=== PATIENT | female | born 1990 | race Caucasian/White ===

== ENCOUNTER 2016-06-27 08:13 | Inpatient (IN) | payer BC ==
[~2016-06-27] VITALS: Ht 152.4 cm; Wt 70.3 kg
[~2016-06-27 08:13] MED LIST: FERR325T5 PO; MTR600X PO; OXYC-643 PO; PRENTAB14 PO
[2016-06-27 09:16] VITALS: Ht 152.4 cm; Wt 70.3 kg
[2016-06-27] MEDS ORDERED: LACTATED RINGER'S 1000ML 1,000 ML IV PRN (11:12)
[2016-06-27] MEDS ORDERED: LACTATED RINGER'S 1000ML 500 ML IV PRN ×2 (11:12→15:40)
[2016-06-27] MEDS ORDERED: OXYTOCIN 30 UNITS/500ML NSS IV PRN ×2 (11:15→21:00)
[2016-06-27 11:33] LABS: HEMATOCRIT 36.6 % (37-47); MEAN CELL VOLUME 79.9 fL (80-100); MEAN CORPUSCULAR HEMOGLOBIN 28.2 pg (25-34); MEAN CORPUSCULAR HGB CONC 35.2 g/dl (32-36); MEAN PLATELET VOLUME 11.8 fL (7.4-10.4); PLATELET COUNT 178 K/uL (130-400); RED BLOOD COUNT 4.58 M/uL (4.2-5.4); WHITE BLOOD COUNT 8.52 K/uL (4.8-10.8)
--- NOTE | 2016-06-27 12:03 | HISTORY & PHYSICAL EXAMINATION ---
DATE OF ADMISSION: 06/27/2016 CHIEF COMPLAINT: Contractions. HISTORY OF PRESENT ILLNESS: The patient is a 25-year-old 2, para 1 at 39 weeks and 3 days gestation who presents to labor and delivery with contractions that began around 4:45 a.m. on the morning of admission. Her contractions have progressively increased in intensity and frequency. On arrival, she was deja every 2-3 minutes. She was found to be 3 cm, 60% effaced, and -3 station. heart tones are category 1. She was allowed to ambulate for 3 hours. Upon recheck she was found to be 4 cm, 70% effaced and -2 station, therefore the patient was admitted to labor and delivery for active labor. She does have a history of a previous section in 2012 secondary to intolerance to labor at 39 weeks and 3 days gestation. The patient opted to proceed with a trial of labor after section. The risks, benefits and alternatives were discussed multiple times throughout her care and informed consent was obtained. She would like to proceed with a trial of labor. PAST MEDICAL HISTORY: Significant for depression. She was on medications with her prior at 6 weeks . Currently, has not needed any medications. PAST SURGICAL HISTORY: Significant for primary section in November of 2012 secondary to bradycardia, baby weighed 6 pounds 8 ounces. SOCIAL HISTORY: The patient denies tobacco, alcohol or drug use. MEDICATIONS: vitamins and Zithromax for bronchitis. ALLERGIES: No known drug allergies. LABS: Blood type is O negative, group B strep negative, rubella nonimmune, hepatitis B surface antigen negative, RPR nonreactive and HIV negative. PHYSICAL EXAMINATION: VITAL SIGNS: Blood pressure 119/67, heart rate of 71, respiration rate of 18, temperature 97.5. GENERAL: The patient is awake, alert and oriented x3. She is in mild to moderate distress from her contractions. HEART: Regular rate and rhythm. LUNGS: Clear to auscultation bilaterally. ABDOMEN: Gravid uterus, appropriate for gestational age. Estimated weight is 7 pounds. EXTREMITIES: No clubbing, cyanosis or calf tenderness. VAGINAL: heart tone is category 1. Contractions are every 2-3 minutes spontaneously. ASSESSMENT AND PLAN: A 25-year-old 2, para 1 at 39 weeks and 3 days gestation. Will be admitted to labor and delivery for active labor. She would like to proceed with a trial of labor after after previous section. Risks, benefits and alternatives were discussed with the patient. Will augment labor as needed. She may have her epidural upon request and anticipate vaginal delivery.
[2016-06-27] MEDS: LACTATED RINGER'S 1000ML 1,000 ML IV SCH ×3 (12:59→19:31)
[2016-06-27] MEDS ORDERED: BUPIVACAINE 0.25% 30 ML VIAL ONE (14:43)
[2016-06-27] MEDS ORDERED: EpHEDrine SULFATE INJ 50 MG/ML AMP ONE (14:44)
[2016-06-27] MEDS ORDERED: FENTANYL CITRATE INJ 50 MCG/1 ML 2 ML VIAL ONE (14:44)
[2016-06-27] MEDS ORDERED: FENTANYL 2MCG/ML ROPIV 1.25MG/ML 100ML BAG EPI ONE (14:45)
[2016-06-27] MEDS ORDERED: NALOXONE HCL INJ 1 MG in SODIUM CHLORIDE 0.9% 1000ML 1,000 ML IV PRN (15:40)
[2016-06-27] MEDS ORDERED: FENTANYL 2MCG/ML ROPIV 1.25MG/ML 100ML BAG EPI PRN (15:45)
[2016-06-27] MEDS ORDERED: EpHEDrine SULFATE INJ 50 MG/ML AMP IV PRN (15:45)
[2016-06-27] MEDS ORDERED: NALBUPHINE HCL INJ 10 MG/ML AMP IV PRN (15:45)
[2016-06-27] MEDS ORDERED: DiphenhydrAMINE HCL 50 MG/ML VIAL IV PRN (15:45)
[2016-06-27] MEDS ORDERED: ONDANSETRON INJ 2 MG/ML 2 ML VIAL IV PRN (15:45)
[2016-06-27] MEDS ORDERED: NALOXONE HCL INJ 0.4 MG/1 ML VIAL/CARP IV PRN (15:45)
[2016-06-27] MEDS ORDERED: CALCIUM CARBONATE 500 MG CHEWABLE PO PRN ×2 (16:00→20:00)
[2016-06-27] MEDS ORDERED: OXYCODONE/ACETAMINOPHEN 5-325 TAB PO PRN (21:00)
[2016-06-27] MEDS ORDERED: LANOLIN OINT EXT PRN ×2 (21:00)
[2016-06-27] MEDS ORDERED: ACETAMINOPHEN/CODEINE 300/30MG TAB PO PRN ×2 (21:00)
[2016-06-27] MEDS ORDERED: MEASLES, MUMPS & RUBELLA VIRUS VIAL SQ. ONE (21:00)
[2016-06-27] MEDS ORDERED: HYDROCORTISONE ACETATE 25 MG SUPP PR PRN (21:00)
[2016-06-27] MEDS ORDERED: ACETAMINOPHEN 325 MG TAB PO PRN (21:00)
[2016-06-27] MEDS ORDERED: DIPHTHERIA/TETANUS/PERTUSSIS 0.5 ML SYR/VIAL IM. ONE (21:00)
[2016-06-27] MEDS ORDERED: BENZOCAINE 20% AER SPR 82.5 GM CAN EXT PRN (21:00)
[2016-06-27] MEDS ORDERED: SUPERCREAM 0.870 % 15GM JAR EXT PRN (21:00)
[2016-06-27] MEDS ORDERED: NURSING VERBAL MED ORDER ONE (21:30)
--- NOTE | 2016-06-27 21:40 | DELIVERY SUMMARY ---
DATE OF OPERATION: 06/27/2016 TIME OF DELIVERY: 20:27 DELIVERY OF PLACENTA: 20:31 DELIVERY NOTE: The patient is a 25-year-old 2 para 1 at 39 weeks and 3 days gestation with a history of a previous section, requesting a trial of labor after section, was admitted on the morning of 06/27/2016 in active labor. Upon admission, she was found to be 4 cm dilated, 60% effaced and -3 station. Her labor was augmented with oxytocin. She received an epidural for anesthesia. Artificial rupture of membranes was performed at 16:43 with clear amniotic fluid noted. She reached complete dilation at 19:52 and pushed to delivery at 20:27. She delivered a viable female infant in the right occiput anterior position to an intact perineum. The baby was then placed on patient's abdomen. Cord was clamped x2 and cut. Apgars were 8 at one minute and 9 at five minutes. Weight is pending. Please see nursing notes for further baby assessment. Cord blood was then obtained and an intact placenta with a 3-vessel cord was delivered at 20:31. Oxytocin infusion was then begun. The lower uterine segment and vagina were cleared of any blood clots and debris. Exploration of perineum noted a left-sided periurethral laceration which was repaired with 3-0 Vicryl suture in a continuous running fashion. Excellent hemostasis was noted. No other lacerations were seen. ESTIMATED BLOOD LOSS: 300 mL. One sharp was removed from the operative field. All sponge and instrument counts were found to be correct x2. Both patient and baby tolerated the delivery well and were in Recovery with stable vital signs. I attest to the content of the Intraoperative Record and any orders documented therein. Any exceptio ns are noted below.
[2016-06-27] MEDS: AZITHROMYCIN 250 MG PO SCH (22:00)
[2016-06-28] VITALS (7 sets, daily range): BP systolic 106–128; BP diastolic 61–84; PULSE 52–77; TEMP 36.4–36.6; O2SAT 96–99
[2016-06-28] MEDS: IBUPROFEN 600 MG TAB PO PRN ×4 (04:09→19:22)
[2016-06-28 06:10] LABS: HEMATOCRIT 33.1 % (37-47)
[2016-06-28] MEDS: PRENATAL VITAMIN TAB PO SCH (07:50)
[2016-06-28] MEDS: FERROUS SULFATE 325 MG TAB PO SCH (07:50)
[2016-06-28] MEDS: DOCUSATE SODIUM 100 MG CAP PO SCH ×2 (07:50→19:21)
--- NOTE | 2016-06-28 10:05 | Anesthesia Procedure Note ---
Anesthesia Epidural Removal Nt Date & Time Jun 28, 2016 at 10:03 Vital Signs Pain Intensity: 2 Vital Signs Past 12 Hours Date Time Temp Pulse Resp B/P Pulse Ox O2 Delivery O2 Flow Rate FiO2 06/28/16 08:00 36.4 52 18 125/76 06/28/16 04:10 36.6 60 20 122/74 98 Room Air 06/28/16 00:10 97 Room Air 06/28/16 00:10 36.4 77 20 106/61 97 Room Air Notes Mental Status: alert / awake / arousable, participated in evaluation Nausea / Vomiting: adequately controlled Pain: adequately controlled Airway Patency, RR, SpO2: stable & adequate BP & HR: stable & adequate Hydration State: stable & adequate Neuraxial Anesthesia: was administered Anesthetic Complications: no major complications apparent, pt satisfied with anesthetic care Epidural: removed without complications, with tip intact
[2016-06-28] MEDS: AZITHROMYCIN 250 MG PO SCH (19:22)
[2016-06-28] MEDS ORDERED: BISACODYL 5 MG TABEC PO SCH (20:00)
[2016-06-29 06:34] LABS: HEMATOCRIT 34.5 % (37-47); MEAN CELL VOLUME 82.9 fL (80-100); MEAN CORPUSCULAR HEMOGLOBIN 27.9 pg (25-34); MEAN CORPUSCULAR HGB CONC 33.6 g/dl (32-36); MEAN PLATELET VOLUME 12.8 fL (7.4-10.4); PLATELET COUNT 164 K/uL (130-400); RED BLOOD COUNT 4.16 M/uL (4.2-5.4); WHITE BLOOD COUNT 14.53 K/uL (4.8-10.8)
[2016-06-29] MEDS ORDERED: BISACODYL 10 MG SUPP PR PRN (07:00)
[2016-06-29 08:00] VITALS: BP 118/79; PULSE 64; TEMP 36.3; O2SAT 99
[2016-06-29] MEDS: IBUPROFEN 600 MG TAB PO PRN (08:08)
[2016-06-29] MEDS: PRENATAL VITAMIN TAB PO SCH (08:09)
[2016-06-29] MEDS: FERROUS SULFATE 325 MG TAB PO SCH (08:09)
[2016-06-29] MEDS: DOCUSATE SODIUM 100 MG CAP PO SCH (08:09)
--- NOTE | 2016-06-29 08:24 | OB/GYN Progress Note ---
MEDICAL MANAGEMENT TRAINER Progress Note Date of Service Jun 29, 2016. Subjective conversation w/ patient, physical exam Ambulation: ambulating normally Voiding: no voiding problems Passing Gas: Yes Diet Tolerance: Regular Diet Lochia: Moderate Feeding Type: Breast Feeding Review of Systems Constitutional: No chills, No fatigue, No fever, No problem reported, No sweats , No weakness, No weight loss Respiratory: No cough, No dyspnea at rest, No dyspnea on exertion, No hemoptysis, No problem reported, No shortness of breath, No sputum, No wheezing Cardiac: No PND, No chest pain, No claudication, No edema, No orthopnea, No palpitations, No problem reported Breast: No breast lump, No breast pain, No change in shape, No nipple discharge , No problem reported, No see HPI Abdomen: No GI bleeding, No constipation, No diarrhea, No nausea, No pain, No problem reported, No vomiting Female : No abnormal vaginal bleeding, No dysuria, No hematuria, No incontinence, No problem reported, No see HPI, No urinary frequency, No vaginal discharge Objective Vital Signs Date Time Temp Pulse Resp B/P Pulse Ox O2 Delivery O2 Flow Rate FiO2 06/28/16 23:20 97 Room Air 06/28/16 23:20 36.5 74 18 114/73 97 Room Air 06/28/16 20:20 Room Air 06/28/16 20:20 36.6 73 16 124/84 96 Room Air 06/28/16 15:45 36.5 68 18 106/75 99 Room Air 06/28/16 15:45 99 Room Air 06/28/16 12:30 36.4 73 18 128/84 98 Room Air Physical Exam General Appearance: WELL-APPEARING, WD/WN Respiratory/Chest: chest non-tender, lungs clear, normal breath sounds, no respiratory distress, no accessory muscle use Cardiovascular: regular rate, rhythm, no edema, no gallop, no JVD, no murmur Abdomen: normal bowel sounds, non tender, soft, no organomegaly, no pulsatile mass Fundus: Firm Incision Description: Clean, Dry & Intact Extremities: normal range of motion, non-tender, normal inspection, no pedal edema Laboratory Results Last 24 Hours Test 06/29/16 05:56 White Blood Count 14.53 K/uL Red Blood Count 4.16 M/uL Hemoglobin 11.6 g/dL Hematocrit 34.5 % Mean Corpuscular Volume 82.9 fL Mean Corpuscular Hemoglobin 27.9 pg Mean Corpuscular Hemoglobin Concent 33.6 g/dl RDW Standard Deviation 41.0 fL RDW Coefficient of Variation 13.5 % Platelet Count 164 K/uL Mean Platelet Volume 12.8 fL Assessment and Plan Day Number: 2 Continue Routine Care: VD day #2 d/c home with instructions
[2016-06-29] MEDS ORDERED: MTR600X PO (08:25)
--- NOTE | 2016-06-29 08:27 | Discharge Instructions ---
Discharge Instructions Date of Service Jun 29, 2016. Admission Reason for Admission: Active Labor At Term Discharge Discharge Diagnosis / Problem: Discharge Goals Goal(s): Routine recovery after delivery Activity Recommendations Activity Limitations: as noted below ACTIVITY RECOMMENDATIONS: * Gradual return to full activity over the next 2-3 weeks. * No lifting - nothing heavier than baby over the next 2-3 weeks. * Do not engage in vigorous exercise, sexual activity or sports until cleared by your physician. * Do not drive or operate any motorized equipment until cleared by your physician. * You may shower/bathe daily. BREAST CARE: If you are not breast feeding: * Wear a supportive bra 24 hours a day for one to two weeks. * Avoid stimulating your breasts and nipples as much as possible during the first few weeks after delivery. * When taking a shower, have the warm water hit your back, not breasts. * When your breasts feel full, apply ice packs. Usually three to four times a day helps ease the discomfort. * Take a mild pain medication (Tylenol/Motrin) when you are uncomfortable. If breast feeding: * Use breast milk to lubricate nipples. Lansinoh cream may be used for sore nipples. You do not need to remove cream prior to breast feeding. If using a different brand of cream, check the label for directions regarding removal of cream prior to nursing. * Wear a supportive bra. * If having problems with breasts or breast feeding, call a datapower consultant or your health care provider. EPISIOTOMY CARE: After delivery, if you have an episiotomy (stitches), the following steps will ease discomfort and aid healing. * For the first 24 hours after delivery, place ice packs next to your episiotomy to help reduce swelling. * After the first 24 hour-period, sitz baths, either portable or in the tub, are suggested. A shower with a shower arm sprayed over the episiotomy may be comforting. * Yvonne care should be done after each voiding and bowel movement. Squirt warm water from a plastic bottle over the perineum (region of the body between the anus and urinary opening) and pat dry. * Use Dermoplast to ease discomfort. Shake container. [place] directly over the episiotomy. * Place a Tucks on a clean sanitary pad next to your episiotomy. OVER THE COUNTER MEDICATION: * For discomfort or pain, you may use Acetaminophen (Tylenol), Ibuprofen (Advil ), or Naproxen (Aleve) following the package directions. * For constipation you may use Colace following the package directions. SPECIAL CARE INSTRUCTIONS: When you are discharged from the hospital, it is important for you to follow the instructions listed below: * During the first week at home, you should be able to care for yourself and your baby. In addition, the usual light household activities are encouraged. * Limit your activities to the way you feel. Do not try to clean the house or move furniture. Be sensible. * If you actively engage in sports and have done so up until the time of your delivery, you may resume these activities as soon as you feel able. This may take up to one month or even longer. Use good judgment. * Continue to take your vitamins for at least six weeks after the of your baby. * Your diet need not be limited unless you were on a special diet before your delivery. Breast-feeding mothers need around 2500 calories per day and at least 64-80 ounces of fluid per day (8 to 10 glasses). * You should eat foods from the four major food groups. Crash diets or fad diets are to be avoided. Eating lean meats, fresh fruits and vegetables, low-fat dairy products, high fiber foods and a regular exercise program, will help you get back to your pre- weight without putting your health at risk. * Constipation is sometimes a problem after delivery. Take a mild laxative as needed. If breast feeding, Milk of Magnesia is acceptable to use. You may use a suppository or Fleets enema if no episiotomy. * A daily shower or tub bath is suggested. Be sure to thoroughly and gently dry the perineum. * A bloody vaginal discharge will usually continue until around four weeks post . A small amount of bleeding may continue for as long as six weeks. Vaginal discharge changes from the bright red bleeding after delivery to pink then brownish and finally yellowish-pink before becoming white and disappearing. * Bleeding may increase with activity. Your first period may come in 4-8 weeks. If you are breast feeding, your period may be delayed even longer. * [place] (sex) can begin whenever both you and your partner feel comfortable and do not have any form of genital infection. It is recommended that you wait until after your return appointment and discuss with your physician. If you have questions, please talk to your health care practitioner. A condom should be used to prevent infection and . * Foreplay, gentle intercourse and lubrication is very important the first several times to prevent pain. A water-based lubricant such as K-Y jelly or Astroglide may be used. * Tampons may be used six weeks after delivery. * Douching should be avoided for 6 weeks after delivery. * If you have RH negative blood and your baby is RH positive, you will receive RHOGAM by injection prior to discharge. The nurse will give you a card to keep with you that has the date and place that you received RHOGAM after delivery. * During your care, you had a Rubella screen done to check for the presence of rubella antibodies in your blood. If your test was negative, you will receive a Rubella vaccine prior to discharge. This vaccine may cause a fever, soreness at the injection site and flu-like symptoms. If these symptoms persist, notify your health care practitioner. is not advised for three months after a Rubella vaccine. There is a higher chance of having a baby with defects if conceived within three months of getting the vaccine. * If you were discharged 24 hours from delivery or before 48 hours: Visiting nurses will come to your home 48 hours after discharge to assess you and your baby. The visiting nurse will meet with you while you are in the hospital to arrange a time and get directions to your home. * Verbalizes understanding of car seat law as reviewed with patient nursing. * Car Seat hand-out given and reviewed with patient by nursing. * Shaken baby information reviewed with patient by nursing. Call you doctor if: * Heavy bleeding (saturating several pads an hour) or passing clots the size of your fist. * A fever >101 degrees F (38.3 degrees C) on two occasions four hours apart and/or chills. * Unusual pain in the pelvic or vaginal areas. * "Baby Blues" lasting longer than two weeks. If you have any questions or concerns, call your health care practitioner at . FOLLOW-UP VISIT: * Please call the office at to schedule a 6 week examination. It is important you keep this appointment. * It is important for you to make arrangements for either yearly or twice yearly check-ups thereafter. . Current Hospital Diet Patient's current hospital diet: Regular OB Diet Discharge Diet Recommended Diet: Regular Diet Pending Studies Studies pending at discharge: no Medical Emergencies . Who to Call and When: Medical Emergencies: If at any time you feel your situation is an emergency, please call 911 immediately. . Non-Emergent Contact Non-Emergency issues call your: Specialist . . "Provider Documentation" section prepared by Eddi Prajapati. VTE Core Measure Inpt VTE Proph given/why not?: Treatment not indicated
[2016-06-29 10:30] VITALS: BP_DIAS 79; PULSE 64; TEMP 36.3
== END 2016-06-29 10:30 | disposition home or self-care (01) | DRG 775 ==
LOC: C.OPB 08:13 → C.LD 08:14 → C.OPB 11:14 → C.OBG 23:03
PROVIDERS: ADMIT Obstetrics & Gynecology; ATTEND Obstetrics & Gynecology
PROC: 0UQMXZZ Repair Vulva, External Approach (ICD-10-PCS; principal; 2016-06-27)
PROC: 10E0XZZ Delivery of Products of Conception, External Approach (ICD-10-PCS; principal; 2016-06-27)
DX: O99.52 Diseases of the respiratory system complicating childbirth (principal); O34.219 Maternal care for unspecified type scar from previous cesarean delivery; J40 Bronchitis, not specified as acute or chronic; Z23 Encounter for immunization; Z37.0 Single live birth; Z3A.39 39 weeks gestation of pregnancy; O71.82 Other specified trauma to perineum and vulva